=== PATIENT | female | born 1955 | race Caucasian/White ===

== ENCOUNTER 2020-12-16 07:00 | Inpatient (IN) ==
[2020-12-16] MEDS ORDERED: ONDANSETRON 4 MG/2 ML VIAL IV PRN (07:22)
[2020-12-16] MEDS ORDERED: PROMETHAZINE 25 MG/1 ML VIAL IM PRN (07:22)
[2020-12-16] MEDS ORDERED: ACETAMINOPHEN 325 MG TABLET PO PRN (07:22)
[2020-12-16 08:38] LABS: ABG Base Excess 3.8 MMOL/L (-2.5-2.5); ABG HCO3 27.8 MMOL/L (20-26); ABG Oxygen Saturation 95.2 % (95-100); ABG PCO2 40.7 MM HG (35-48); ABG PH 7.448 (7.35-7.45); ABG PO2 69.2 MM HG (80-95); ABG TCO2 26.3 MMOL/L (23-27); Allen Test Positive; Pt O2 Delivery Device Ventilator
[2020-12-16 08:44] LABS: Basophils % 0.1 % (0.0-0.8); Hemoglobin 7.7 GM/DL (12.0-16.0); Immature Granulocytes % 2.5 %; Immature Granulocytes Absolute 0.36 #; Lymphocytes # 0.8 10*3/uL (1.4-4.0); Lymphocytes % 5.3 % (21.3-54.2); Mean Corpuscular HGB Conc 32.1 GM/DL (32-36); Mean Platelet Volume 11.6 FL (9.6-12.0); Monocytes % 4.2 % (1.7-12.7); NRBC # 0.02 10*3/uL; Neutrophils % 87.9 % (38.7-73.9); Platelet Count 70 T/CUMM (130-400); Red Blood Count 2.79 MC/CUMM (3.8-5.5); Red Cell Distribution Width 18.9 % (9.3-17.3); White Blood Count 14.3 T/CUMM (4-12)
[2020-12-16 08:55] LABS: Calcium 7.7 MG/DL (8.5-10.1); Osmolality,Calculated 322.4 MOS/KG (273-304); Potassium 5.5 MMOL/L (3.5-5.1)
[2020-12-16] MEDS: LACTATED RINGERS 1,000 ML IV SCH ×3 (08:55→23:36)
[2020-12-16] MEDS: PANTOPRAZOLE 40 MG VIAL IV SCH (08:55)
[2020-12-16 09:01] LABS: Hypochromasia 1+; Microcytosis 1+; Platelet Estimate Decreased
[2020-12-16] MEDS ORDERED: SEVOFLURANE 1 UNIT/15 MINUTE INH ONE ×2 (10:56→12:15)
[2020-12-16] MEDS ORDERED: MIDAZOLAM 2 MG/2 ML VIAL ONE (10:56)
[2020-12-16] MEDS ORDERED: ROCURONIUM 50 MG/5 ML VIAL IV ONE (10:56)
[2020-12-16] MEDS ORDERED: CHLORHEXIDINE 0.12% ORAL RINSE 60 ML BOTTLE SWISH/SPIT ONE (12:08)
[2020-12-16] MEDS ORDERED: MINERAL OIL/PETROLATUM OPH OINT 3.5 GM TUBE ONE (12:27)
[2020-12-16] MEDS ORDERED: MEROPENEM 1,000 MG VIAL IV SCH (12:46)
[2020-12-16] MEDS: MEROPENEM 500 MG in SODIUM CHLORIDE 0.9% 100 ML IV SCH (13:17)
[2020-12-16] MEDS: methylPREDNISolone SOD SUC 40 MG/1 ML VIAL IV SCH (13:17)
[2020-12-16] MEDS: THEOPHYLLINE 5.33 MG/ML 30 ML/BOTTLE PER TUBE SCH ×2 (14:42→18:23)
[2020-12-16] MEDS ORDERED: SODIUM CHLORIDE 0.9% 1,000 ML IV PRN (16:11)
[2020-12-16] MEDS: metOLazone 5 MG TABLET PO SCH (20:22)
[2020-12-16] MEDS: METOPROLOL TARTRATE 25 MG TABLET PO SCH (20:22)
[2020-12-16] MEDS: ATORVASTATIN 40 MG TABLET PO SCH (20:23)
[2020-12-17] MEDS: methylPREDNISolone SOD SUC 40 MG/1 ML VIAL IV SCH ×2 (00:40→12:01)
[2020-12-17] MEDS: MEROPENEM 500 MG in SODIUM CHLORIDE 0.9% 100 ML IV SCH ×2 (00:40→12:01)
[2020-12-17] MEDS: THEOPHYLLINE 5.33 MG/ML 30 ML/BOTTLE PER TUBE SCH ×4 (01:12→18:13)
[2020-12-17 04:31] LABS: ABG Base Excess 2.9 MMOL/L (-2.5-2.5); ABG HCO3 27.9 MMOL/L (20-26); ABG Oxygen Saturation 97.3 % (95-100); ABG PCO2 45.3 MM HG (35-48); ABG PH 7.408 (7.35-7.45); ABG PO2 105.7 MM HG (80-95); ABG TCO2 29.3 MMOL/L (23-27); Pt O2 Delivery Device Ventilator
[2020-12-17 04:40] LABS: Basophils % 0.1 % (0.0-0.8); Hemoglobin 8.4 GM/DL (12.0-16.0); Immature Granulocytes % 1.4 %; Immature Granulocytes Absolute 0.22 #; Lymphocytes # 0.5 10*3/uL (1.4-4.0); Lymphocytes % 3.3 % (21.3-54.2); Mean Corpuscular HGB Conc 33.6 GM/DL (32-36); Mean Corpuscular Volume 85.9 FL (87-102); Mean Platelet Volume 11.1 FL (9.6-12.0); Monocytes % 2.7 % (1.7-12.7); Neutrophils % 92.5 % (38.7-73.9); Platelet Count 78 T/CUMM (130-400); Red Blood Count 2.91 MC/CUMM (3.8-5.5); Red Cell Distribution Width 18.6 % (9.3-17.3); White Blood Count 15.7 T/CUMM (4-12)
[2020-12-17 04:59] LABS: Anisocytosis 1+; Band Neutrophils 1 % (0-10); Hypochromasia 1+; Lymphocytes 2 % (20-55); Microcytosis 1+; Segmented Neutrophils 96 % (50-85); Total Cells Counted 100
[2020-12-17 05:00] LABS: Calcium 7.6 MG/DL (8.5-10.1); Osmolality,Calculated 323.4 MOS/KG (273-304); Platelet Estimate Decreased; Potassium 5.6 MMOL/L (3.5-5.1)
[2020-12-17] MEDS: LACTATED RINGERS 1,000 ML IV SCH (06:30)
[2020-12-17] MEDS: METOPROLOL TARTRATE 25 MG TABLET PO SCH ×2 (08:25→20:36)
[2020-12-17] MEDS: metOLazone 5 MG TABLET PO SCH ×2 (08:26→20:36)
[2020-12-17] MEDS: PANTOPRAZOLE 40 MG VIAL IV SCH (08:26)
[2020-12-17] MEDS: MULTIVITAMIN (CENTRUM) TABLET PO SCH (08:26)
[2020-12-17] MEDS: ATORVASTATIN 40 MG TABLET PO SCH (20:36)
[2020-12-18] MEDS: THEOPHYLLINE 5.33 MG/ML 30 ML/BOTTLE PER TUBE SCH ×4 (01:35→22:21)
[2020-12-18] MEDS: methylPREDNISolone SOD SUC 40 MG/1 ML VIAL IV SCH ×2 (01:35→12:27)
[2020-12-18] MEDS: MEROPENEM 500 MG in SODIUM CHLORIDE 0.9% 100 ML IV SCH ×2 (01:35→12:27)
[2020-12-18 04:58] LABS: ABG Base Excess 2.7 MMOL/L (-2.5-2.5); ABG HCO3 26.6 MMOL/L (20-26); ABG Oxygen Saturation 85.9 % (95-100); ABG PCO2 37.9 MM HG (35-48); ABG PH 7.464 (7.35-7.45); ABG PO2 51.2 MM HG (80-95); ABG TCO2 27.8 MMOL/L (23-27); Pt O2 Delivery Device Ventilator
[2020-12-18 05:02] LABS: Basophils % 0.1 % (0.0-0.8); Eosinophils % 0.1 % (0.00-10.9); Hematocrit 24.9 VOL% (35.7-47.0); Hemoglobin 8.2 GM/DL (12.0-16.0); Immature Granulocytes Absolute 0.17 #; Lymphocytes # 0.5 10*3/uL (1.4-4.0); Lymphocytes % 2.9 % (21.3-54.2); Mean Corpuscular HGB Conc 32.9 GM/DL (32-36); Mean Corpuscular Volume 86.8 FL (87-102); Mean Platelet Volume 10.8 FL (9.6-12.0); Monocytes % 3.5 % (1.7-12.7); Neutrophils % 92.4 % (38.7-73.9); Platelet Count 80 T/CUMM (130-400); Red Blood Count 2.87 MC/CUMM (3.8-5.5); Red Cell Distribution Width 18.9 % (9.3-17.3); White Blood Count 16.9 T/CUMM (4-12)
[2020-12-18 05:15] LABS: Calcium 7.7 MG/DL (8.5-10.1); Osmolality,Calculated 327.2 MOS/KG (273-304); Potassium 5.4 MMOL/L (3.5-5.1)
[2020-12-18 05:32] LABS: Band Neutrophils 1 % (0-10); Hypochromasia 1+; Lymphocytes 1 % (20-55); Microcytosis 1+; Platelet Estimate Decreased; Segmented Neutrophils 96 % (50-85); Total Cells Counted 100
[2020-12-18] MEDS: metOLazone 5 MG TABLET PO SCH ×2 (08:00→22:20)
[2020-12-18] MEDS: MULTIVITAMIN (CENTRUM) TABLET PO SCH (08:00)
[2020-12-18] MEDS: PANTOPRAZOLE 40 MG VIAL IV SCH (08:00)
[2020-12-18] MEDS: METOPROLOL TARTRATE 25 MG TABLET PO SCH ×2 (08:00→22:43)
[2020-12-18] MEDS: ALBUMIN 25% 12.5 GM/50 ML VIAL IV SCH ×2 (09:01→22:37)
[2020-12-18] MEDS: INSULIN LISPRO 100 UNIT/ML SUBCUT SCH ×2 (11:43→17:47)
[2020-12-18 12:57] VITALS: BP 137/69
[2020-12-18] MEDS: FUROSEMIDE 40 MG/4 ML VIAL IV SCH (15:36)
[2020-12-18] MEDS ORDERED: SODIUM CHLORIDE 0.9% 500 ML IV ONE (17:50)
[2020-12-18] MEDS ORDERED: INSULIN GLARGINE 100 UNIT/ML SUBCUT SCH (21:00)
[2020-12-18] MEDS: ATORVASTATIN 40 MG TABLET PO SCH (22:20)
[2020-12-19] MEDS: THEOPHYLLINE 5.33 MG/ML 30 ML/BOTTLE PER TUBE SCH ×2 (00:23→08:05)
[2020-12-19] MEDS: MEROPENEM 500 MG in SODIUM CHLORIDE 0.9% 100 ML IV SCH (00:23)
[2020-12-19] MEDS: INSULIN LISPRO 100 UNIT/ML SUBCUT SCH ×2 (00:23→06:30)
[2020-12-19] MEDS: methylPREDNISolone SOD SUC 40 MG/1 ML VIAL IV SCH (00:23)
[2020-12-19] MEDS ORDERED: DIGOXIN 0.5 MG/2 ML AMP IV ONE ×2 (02:00→03:00)
[2020-12-19] MEDS ORDERED: DIGOXIN 0.5 MG/2 ML AMP ONE ×2 (02:07→03:27)
[2020-12-19 05:43] LABS: Basophils % 0.1 % (0.0-0.8); Eosinophils % 0.1 % (0.00-10.9); Hematocrit 22.2 VOL% (35.7-47.0); Hemoglobin 7.3 GM/DL (12.0-16.0); Immature Granulocytes Absolute 0.17 #; Lymphocytes # 0.4 10*3/uL (1.4-4.0); Lymphocytes % 2.5 % (21.3-54.2); Mean Corpuscular HGB Conc 32.9 GM/DL (32-36); Mean Corpuscular Volume 86.7 FL (87-102); Mean Platelet Volume 11.9 FL (9.6-12.0); Monocytes % 4.4 % (1.7-12.7); Neutrophils % 91.9 % (38.7-73.9); Red Blood Count 2.56 MC/CUMM (3.8-5.5); Red Cell Distribution Width 19.6 % (9.3-17.3); White Blood Count 16.7 T/CUMM (4-12)
[2020-12-19 05:52] LABS: Platelet Count 53 T/CUMM (130-400)
[2020-12-19 06:06] LABS: Hypochromasia 1+; Lymphocytes 2 % (20-55); Microcytosis 1+; Platelet Estimate Decreased; Segmented Neutrophils 93 % (50-85); Total Cells Counted 100
[2020-12-19 06:19] LABS: Albumin 2.3 G/DL (3.4-5.0); Calcium 8.1 MG/DL (8.5-10.1); Osmolality,Calculated 326.1 MOS/KG (273-304); Potassium 5.1 MMOL/L (3.5-5.1); Total Protein 5.4 G/DL (6.4-8.2)
[2020-12-19 06:26] LABS: ABG HCO3 23.6 MMOL/L (20-26); ABG PCO2 36.7 MM HG (35-48); ABG PH 7.459 (7.35-7.45); ABG TCO2 36.7 MMOL/L (23-27)
[2020-12-19 06:27] LABS: ABG Base Excess 2.3 MMOL/L (-2.5-2.5); ABG Oxygen Saturation 99.7 % (95-100)
[2020-12-19] MEDS: metOLazone 5 MG TABLET PO SCH (08:04)
[2020-12-19] MEDS: MULTIVITAMIN (CENTRUM) TABLET PO SCH (08:04)
[2020-12-19] MEDS: METOPROLOL TARTRATE 25 MG TABLET PO SCH (08:04)
[2020-12-19] MEDS: FUROSEMIDE 40 MG/4 ML VIAL IV SCH (08:05)
[2020-12-19] MEDS: PANTOPRAZOLE 40 MG VIAL IV SCH (08:06)
[2020-12-19] MEDS: ALBUMIN 25% 12.5 GM/50 ML VIAL IV SCH (08:27)
[2020-12-19] MEDS ORDERED: THIAMINE 100 MG TABLET PER TUBE SCH (09:00)
[2020-12-19] MEDS ORDERED: FUROSEMIDE 40 MG/4 ML VIAL IV SCH (16:00)
== END 2020-12-19 11:58 | DRG 4 ==
LOC: N.OR 07:00 → N.CC 07:06
PROVIDERS: ADMIT Surgery; ATTEND Surgery